=== PATIENT | female | born 1955 | race Caucasian/White ===

== ENCOUNTER 2020-09-22 06:54 | Day surgery (SDC) | payer BC ==
[~2020-09-22] VITALS: Ht 170.2 cm; Wt 86.2 kg
[~2020-09-22 06:54] MED LIST: ALLEGRA60 MG PO; CALCIUM250 M1 PO; FLONASE AL50 MCG/ACT NAB; MULTIVITAMIN1 TA1 PO; SINGULAIR10 MG PO
[2020-09-22 09:16] VITALS: BP 102/62
== END 2020-09-22 09:46 | disposition home or self-care (01) | DRG 951 ==
LOC: ENDO 06:54
PROVIDERS: ATTEND Surgery
PROC: 0DJD8ZZ Inspection of Lower Intestinal Tract, Via Natural or Artificial Opening Endoscopic (ICD-10-PCS; principal; 2020-09-22)
DX: Z12.11 Encounter for screening for malignant neoplasm of colon (principal); K57.30 Diverticulosis of large intestine without perforation or abscess without bleeding; R10.10 Upper abdominal pain, unspecified; R14.0 Abdominal distension (gaseous); Z98.84 Bariatric surgery status

== ENCOUNTER 2024-07-02 09:29 | Day surgery (SDC) | payer BC, MEDICARE ==
[~2024-07-02] VITALS: Ht 170.2 cm; Wt 98.0 kg
[~2024-07-02 09:29] MED LIST changes: +B12; +FERROUS SULF325 M3 PO; +MOMETASONE; +MOMETASONE50 MCG/ACT; +OLOPATADINE; +PATADAY0.1 % OU; +PROTONIX20 M1 PO
[2024-07-02] MEDS ORDERED: SODIUM CHLORIDE 0.9% 100 ML IV ONE (09:49)
[2024-07-02] MEDS ORDERED: FAMOTIDINE 10MG/ML 2ML SDV IV ONE (09:49)
[2024-07-02] MEDS ORDERED: ceFAZolin Sodium 2 GM/VIAL SDV ONE (09:49)
[2024-07-02] MEDS ORDERED: SODIUM CHLORIDE 0.9% 1,000 ML IV ONE ×2 (09:49→13:00)
[2024-07-02] MEDS ORDERED: GLUCAGON HCL (Rdna) 1 MG VIAL ONE (10:16)
[2024-07-02] MEDS ORDERED: ISOVUE-300 (Iopamidol) 100 ML SDV IV ONE (10:16)
[2024-07-02] MEDS ORDERED: LIDOcaine HCl 1% (Local Anesth.) 20 ML VIAL ONE (10:17)
[2024-07-02] MEDS ORDERED: PERCOCET 5/325M1 TAB PO (12:40)
[2024-07-02] MEDS ORDERED: STERILE WATER FOR IRRIGATION 500 ML BTL IR ONE (13:00)
[2024-07-02 14:02] VITALS: BP 125/61
[2024-07-02] MEDS ORDERED: PROPOFOL 200 MG/20 ML VIAL IV ONE (15:51)
[2024-07-02] MEDS ORDERED: ONDANSETRON HCl 4 MG/2 ML SDV IV ONE (15:51)
[2024-07-02] MEDS ORDERED: SUCCINYLCHOLINE CHLORIDE 20 MG/ML 10ML VIAL IV ONE (15:51)
[2024-07-02] MEDS ORDERED: ePHEDrine SULFATE 50 MG/ML AMP IV ONE (15:51)
[2024-07-02] MEDS ORDERED: ROCURONIUM BROMIDE 10 MG/ML 5 ML VIAL IV ONE (15:51)
[2024-07-02] MEDS ORDERED: ACETAMINOPHEN 1,000 MG/100 ML VIAL IV ONE (15:51)
[2024-07-02] MEDS ORDERED: SUGAMMADEX SODIUM 200 MG/2 ML SDV IV ONE (15:51)
[2024-07-02] MEDS ORDERED: LIDOCAINE HCL 2% 2ML SDV IV ONE (15:51)
[2024-07-02] MEDS ORDERED: KETOROLAC TROMETHAMINE 30 MG/ML SDV IV ONE (15:51)
[2024-07-03] MEDS ORDERED: LORTAB 5/3255 MG PO (08:21)
== END 2024-07-02 13:51 | disposition home or self-care (01) | DRG 419 ==
LOC: ORM 09:29
PROVIDERS: ATTEND Surgery
PROC: 0FT44ZZ Resection of Gallbladder, Percutaneous Endoscopic Approach (ICD-10-PCS; principal; 2024-07-02)
DX: K81.1 Chronic cholecystitis (principal); Z98.84 Bariatric surgery status
CPT/HCPCS: J0131; J0690; J1610; J2405; Q9966